=== PATIENT | male | born 1985 | race Caucasian/White ===

== ENCOUNTER 2019-03-18 04:29 | Emergency (ER) | payer MEDICAID ==
[~2019-03-18] VITALS: Ht 185.4 cm; Wt 89.0 kg
[~2019-03-18 04:29] MED LIST: HYDR-4383 PO
[2019-03-18] MEDS ORDERED: bacitracin 15gm ointment TP ONE (04:40)
[2019-03-18] MEDS ORDERED: TETanus/Pertussis (Acell)/Diphther VAC/PF (Tdap-Adult) 0.5ml syringe IM ONE (04:40)
[2019-03-18] MEDS ORDERED: ceFAZolin 1gm IM kit IM ONE (05:50)
--- NOTE | 2019-03-18 05:56 | NUR ---
holding the rocephin for now, will see if neuro wants this or a different abx.
[2019-03-18] MEDS ORDERED: SULF1TAB49 PO (06:04)
[2019-03-18 06:31] VITALS: BP 154/83
== END 2019-03-18 06:33 ==
LOC: ER 04:31
DX: S02.119A Unspecified fracture of occiput, initial encounter for closed fracture (principal); S80.812A Abrasion, left lower leg, initial encounter; S80.811A Abrasion, right lower leg, initial encounter; R51 Headache; G89.29 Other chronic pain; F12.90 Cannabis use, unspecified, uncomplicated; Z88.6 Allergy status to analgesic agent; Z79.2 Long term (current) use of antibiotics; Z79.899 Other long term (current) drug therapy; Y04.2XXA Assault by strike against or bumped into by another person, initial encounter; Y93.64 Activity, baseball; Y92.89 Other specified places as the place of occurrence of the external cause; Y99.8 Other external cause status
CPT/HCPCS: 12002; 70450; 90471; 90715; 96372; 99284; J0690